=== PATIENT | male | born 1965 | race Caucasian/White ===

== ENCOUNTER 2017-07-09 10:43 | Outpatient (RCR) | payer OTHER, SELFPAY | END 2017-07-09 23:59 | LOC: PT 10:43 | PROVIDERS: Visit Provider Family Medicine | DX: M50.90 Cervical disc disorder, unspecified, unspecified cervical region (principal); M47.22 Other spondylosis with radiculopathy, cervical region; M50.20 Other cervical disc displacement, unspecified cervical region | CPT/HCPCS: 97012; 97110; 97162 ==

== ENCOUNTER 2017-08-17 08:00 | Outpatient (RCR) | payer OTHER, SELFPAY | END 2017-08-17 08:01 | disposition home or self-care (01) | LOC: PT 08:00 | PROVIDERS: Family Provider Family Medicine; PCP Family Medicine; Visit Provider Family Medicine | DX: M50.90 Cervical disc disorder, unspecified, unspecified cervical region (principal); M47.22 Other spondylosis with radiculopathy, cervical region; M50.20 Other cervical disc displacement, unspecified cervical region | CPT/HCPCS: 97010; 97012; 97014; 97035; 97110; G0283 ==

== ENCOUNTER → 2021-01-15 08:57 | Outpatient (CLI) | payer OTHER, SELFPAY ==
--- NOTE | 2021-01-15 09:01 | US_ITS ---
APPROVED REPORT Exam Type: Ankle to Brachial Index Blister Packing Machine Tender: RT Livan(R) Indications Claudication: Rest Pain: Numbness/Tingling Current Smoker diminished pulses. History aortal abdominal bifemoral bypass 2015. Risk Factors History of PAD: Hypertension Hyperlipidemia Current Smoker Pressures/Indices Right Indices Left Indices Brachial 140.00 mmHg Brachial 132.00 mmHg Low Thigh 126.00 mmHg 0.90 Low Thigh 111.00 mmHg 0.79 Calf 141.00 mmHg 1.01 Calf 110.00 mmHg 0.79 Ankle(PT) 146.00 mmHg 1.04 Ankle(PT) 111.00 mmHg 0.79 Ankle(DP) 146.00 mmHg 1.04 Ankle(DP) 94.00 mmHg 0.67 Digit 128.00 mmHg 0.91 Digit 104.00 mmHg 0.74 Findings RT VALERIE=1.04 LT VALERIE=0.8 RT TBI-0.91 LT TBI=0.74 RLE Normal pulses normal waveforms LLE diminished pulses and abnormal waveforms distally VPR and waveforms were obtained single trace as opposed to dual trace due to history of illiac bifemoral bypass. Conclusion RT VALERIE=1.04 LT VALERIE=0.8 RT TBI-0.91 LT TBI=0.74 RLE Normal pulses normal waveforms LLE diminished pulses and abnormal waveforms distally VPR and waveforms were obtained single trace as opposed to dual trace due to history of illiac bifemoral bypass. Mild left arterial disease Electronically signed by : Ashutosh Lino MD 01/15/2021 15:56:54
== END ==
PROVIDERS: PCP Family Medicine; Visit Provider Internal Medicine Cardiovascular Disease
DX: I70.213 Atherosclerosis of native arteries of extremities with intermittent claudication, bilateral legs (principal)
CPT/HCPCS: 93923

== ENCOUNTER → 2022-04-22 10:03 | Outpatient (POV) | payer OTHER, SELFPAY | PROVIDERS: Visit Provider Dermatology | DX: Z00.00 Encounter for general adult medical examination without abnormal findings (principal) ==

== ENCOUNTER 2022-04-24 07:48 | Day surgery (SDC) | payer OTHER, SELFPAY ==
[2022-04-24 08:11] VITALS: BP 136/80; PULSE 61; RESP 20; TEMP 36.5; O2SAT 98; BMI 22.8
--- NOTE | 2022-04-24 08:36 | EXP.ANES.CKL ---
[facility] Medical History Abnormal ankle brachial index (VALERIE) Abnormal electrocardiography Claudication PAD (peripheral artery disease) Tobacco dependence syndrome Surgical History Hx of zwxvp-fnzxk-kzehnya bypass Family History Father Family history of stroke Social History (Updated 04/24/22 @ 08:13 by Blanca Keith RN) Smoking Status: Heavy tobacco smoker tobacco type: cigarettes packs per day: 2 pack-years: 45 alcohol intake: never substance use type: denies use current occupational status: employed Travel in the last 8 weeks: Inside the [place] household members: spouse housing: house marital status: education level: high school caffeine: Yes special radha needs: No agree to transfusion: No do you feel safe at home: Yes victim of physical abuse: No victim of emotional abuse: No victim of sexual abuse: No would you like helpful sources: No [facility] Anesthesia Checklist Patient Identification Patient Identification: Arm Band Structural Data Admitted From: Home Planned Operative Procedure/s: colonoscopy Consent for Planned Operative Procedure(s) Verified: Yes Verified Documents: Surgical Consent and History and Physical NPO Status Verified Time NPO: 00:00 Additional verifications Anesthesia Reactions: No Airway Assessment C-Spine Mobility Assessed: Yes TMJ Mobility Assessed: Yes Dentition: Good Dentition Neurological Assessment Level of Consciousness: Awake and Alert Anesthesia Plan Anesthesia Risk discussed: Yes Anesthesia Plan: Verified ASA Class: III Anesthesia Type: MAC
[2022-04-24 09:02] VITALS: O2SAT 97
--- NOTE | 2022-04-24 09:13 | HMH.SCOPE ---
Procedure: Date: 04/24/22 Patient Date of :: 1965 Procedure Performed:: Screening colonocscopy Indications:: History of polyps Performing Provider:: Trevor Lee MD Referring Provider:: Jesse Madrid MD Sedation:: Propofol Procedure:: After placing the patient in the left lateral decubitus position, the colonoscopy was gently inserted into the rectum and under direct visualization advanced to the cecum which was identified by transillumination in the right lower quadrant, identification of the ileocecal valve, appendiceal orifice, and cecal strap. Color, texture, mucosa, and anatomy of the colon were carefully examined with the scope. Findings:: Anal canal: normal Rectum: normal Sigmoid colon: normal without polyps or inflammatory changes Descending colon: normal without polyps or inflammatory changes Splenic flexure: normal Transverse colon: normal without polyps or inflammatory changes Hepatic flexure: normal Ascending colon: normal without polyps or inflammatory changes Cecum: normal Terminal ileum: not visualized Impression: Normal colonoscopy Recommendations:: Follow up Exam in about FIVE years or so Complications:: None Estimated blood obtained (mL): 0
[2022-04-24 09:18] VITALS: BP 130/89; PULSE 68; RESP 18; TEMP 36.2; O2SAT 98
[2022-04-24 09:28] VITALS: BP 134/80; PULSE 64; RESP 18; O2SAT 99
[2022-04-24 09:38] VITALS: BP 143/79; PULSE 61; RESP 18; O2SAT 99
[2022-04-24 09:48] VITALS: BP 144/77; PULSE 55; RESP 17; O2SAT 99
== END 2022-04-24 09:48 | disposition home or self-care (01) ==
PROVIDERS: PCP Family Medicine; Visit Provider Internal Medicine Gastroenterology
PROC: 0DJD8ZZ Inspection of Lower Intestinal Tract, Via Natural or Artificial Opening Endoscopic (ICD-10-PCS; CPT 45378; principal; 2022-04-24 09:00)
DX: Z12.11 Encounter for screening for malignant neoplasm of colon (principal); Z86.010 Personal history of colon polyps; Z72.0 Tobacco use; Z79.899 Other long term (current) drug therapy
CPT/HCPCS: 45378

== ENCOUNTER → 2023-07-07 07:05 | Outpatient (CLI) | payer OTHER, SELFPAY ==
--- NOTE | 2023-07-07 07:11 | CT_ITS ---
FINAL REPORT TECHNIQUE: Axial images were obtained from the lung apex to the mid abdomen by computed tomography. This study was performed with techniques to keep radiation doses as low as reasonably achievable (ALARA). Individualized dose reduction techniques using automated exposure control or adjustment of mA and/or kV according to the patient's size were employed. CLINICAL HISTORY: H/O TOBACCO USE CURRENT SMOKER 2PPD X41 YEARS FINDINGS: CHEST CT LOW DOSE CTDI vol (mGy): 2.90 DLP (mGy-cm): 107.33 There is no axillary adenopathy. There is no hilar or mediastinal adenopathy. The heart is normal in size. There is no pericardial or pleural effusion. There are multiple small noncalcified nodules bilaterally, for example there is a 3 mm right upper lobe nodule best seen on image 23 of series 604. There is also a 3 mm right lower lobe nodule well seen on image 43 of series 604. Limited images of the upper abdomen are unremarkable. IMPRESSION: Multiple noncalcified nodules bilaterally. Lung RADS category 2. Recommend 12 month follow-up low-dose chest CT. Reviewed, Interpreted and Dictated by Chi Agee MD Transcribed by Mikaela Arreola Authenticated and [facility]
== END ==
PROVIDERS: PCP Family Medicine; Visit Provider Family Medicine
DX: Z87.891 Personal history of nicotine dependence (principal); Z12.2 Encounter for screening for malignant neoplasm of respiratory organs
CPT/HCPCS: 71271

== ENCOUNTER 2023-09-04 20:22 | Inpatient (IN) | payer OTHER, SELFPAY ==
[2023-09-04 20:30] VITALS: BP 132/97; PULSE 85; O2SAT 98
[2023-09-04 20:31] VITALS: BP 161/108; PULSE 70; RESP 16; TEMP 37.2; O2SAT 97; BMI 22.1
--- NOTE | 2023-09-04 20:37 | CT_ITS ---
PROCEDURE INFORMATION: Exam: CTA Chest With Contrast Exam date and time: 09/04/2023 9:15 PM Age: 58 years old Clinical indication: Other: Abdomen pain; Prior surgery; Surgery date: 6+ months; Surgery type: Aortic surgery; Additional info: Abd pain, history of aortic surgery TECHNIQUE: Imaging protocol: Computed tomographic angiography of the chest with contrast. Exam focused on the arteries. 3D rendering (Not supervised by radiologist): MIP and/or 3D reconstructed images were created by the technologist. Radiation optimization: All CT scans at this facility use at least one of these dose optimization techniques: automated exposure control; mA and/or kV adjustment per patient size (includes targeted exams where dose is matched to clinical indication); or iterative reconstruction. Contrast material: ISOVUE 370; Contrast volume: 100 ml; Contrast route: INTRAVENOUS (IV); COMPARISON: CT ANGIO ABDOMEN PELVIS 04/09/2023 21:15 FINDINGS: Pulmonary arteries: No pulmonary emboli. Aorta: No aortic dissection. The aorta demonstrates mild atherosclerotic disease. Lungs: Bilateral apical blebs. Mild to moderate centrilobular emphysema. Pleural spaces: Unremarkable. No pneumothorax. No pleural effusion. Heart: Unremarkable. No cardiomegaly. No pericardial effusion. Coronary arteries: Moderate coronary arterial calcification, indicating the presence of coronary artery disease. Lymph nodes: Unremarkable. No enlarged lymph nodes. Bones/joints: Unremarkable. No acute fracture. Soft tissues: Unremarkable. Other findings: Please see separate report for abdomen/pelvis. IMPRESSION: 1. No aortic dissection. 2. No pulmonary emboli. 3. Moderate coronary arterial calcification, indicating the presence of coronary artery disease. If the patient has associated symptoms, recommend management as per chest pain guidelines. If the patient is asymptomatic, consider reviewing modifiable cardiovascular risk factors and managing as per guidelines for primary prevention. COMMENTS: The presence of pulmonary emphysema on CT is an independent risk factor for lung cancer. In the absence of a history or active diagnosis of lung cancer, it is recommended that this patient with emphysema be evaluated for enrollment in a low dose CT lung cancer screening program.
--- NOTE | 2023-09-04 20:37 | CT_ITS ---
PROCEDURE INFORMATION: Exam: CTA Abdomen and Pelvis With Contrast Exam date and time: 09/04/2023 9:15 PM Age: 58 years old Clinical indication: Abdominal pain; Generalized; Prior surgery; Surgery date: 6+ months; Surgery type: Aortic surgery; Additional info: Abd pain, history of aortic surgery TECHNIQUE: Imaging protocol: Computed tomographic angiography of the abdomen and pelvis with contrast. Exam focused on the arteries. 3D rendering (Not supervised by radiologist): MIP and/or 3D reconstructed images were created by the technologist. Radiation optimization: All CT scans at this facility use at least one of these dose optimization techniques: automated exposure control; mA and/or kV adjustment per patient size (includes targeted exams where dose is matched to clinical indication); or iterative reconstruction. Contrast material: ISOVUE 370; Contrast volume: 100 ml; Contrast route: INTRAVENOUS (IV); COMPARISON: CT ANGIO CHEST 04/09/2023 21:15 FINDINGS: Aorta: No aortic dissection or aneurysm. Chronic aortoiliac occlusion status post aortobifemoral bypass. The bypass grafts are patent. Celiac trunk and mesenteric arteries: No occlusion or significant stenosis. Renal arteries: Mild stenosis of the proximal right renal artery. Right iliac arteries: No occlusion or significant stenosis. Right femoral/popliteal arteries: Postsurgical changes of the right femoral vessels. Left iliac arteries: No occlusion or significant stenosis. Left femoral/popliteal arteries: Occlusion of the left superficial femoral artery at its origin with reconstitution a few cm distal. Postsurgical changes of the left femoral vessels. Liver: No mass. Gallbladder and bile ducts: Unremarkable. No calcified stones. No ductal dilation. Pancreas: Unremarkable. No mass. No ductal dilation. Spleen: Unremarkable. No splenomegaly. Adrenal glands: Unremarkable. No mass. Kidneys and ureters: Tiny nonobstructing right renal calculus. Low and high attenuation renal lesions measuring up to 12 mm in diameter are incompletely characterized, but are likely simple and hyperdense cysts. No followup imaging is warranted. Stomach and bowel: The proximal small bowel is dilated and fluid-filled. The bowel wall of the obstructed segments as minimal postcontrast enhancement. The dilated bowel tapers to normal diameter in the left side of the abdomen where there is significant bowel wall enhancement and thickening example image 171 series 4. Appendix: While there is free fluid around the appendix, the appendix is unremarkable in appearance. Intraperitoneal space: Small amount of free fluid in the abdomen and pelvis. Lymph nodes: Unremarkable. No enlarged lymph nodes. Urinary bladder: Unremarkable. No mass. Reproductive: Unremarkable as visualized. Bones/joints: No acute fracture. Soft tissues: Unremarkable. Other findings: Stigmata of old granulomatous disease. IMPRESSION: 1. Findings most likely represent partial small bowel obstruction. Given the decreased small bowel wall enhancement of the obstructed segment, mesenteric ischemia is a differential possibility. The SMA and celiac trunk are patent. No free air. 2. No aortic dissection or aneurysm. 3. Tiny nonobstructing right renal calculus. 4. THIS REPORT CONTAINS FINDINGS THAT MAY BE CRITICAL TO PATIENT CARE. The findings were verbally communicated via telephone conference with Shavonne Blanco at 10:22 PM EST on 09/04/2023. The findings were acknowledged and understood.
[2023-09-04 20:46] LABS: Basophils % 0.2 % (0.1-2.0); Eosinophils % 0.4 % (0.1-12.0); Hematocrit 58.6 % (42.0-52.0); Lymphocytes # 0.8 K/mm3 (0.7-4.5); Mean Corpuscular HGB Conc 32.3 g/dL (31.8-35.4); Mean Corpuscular Hemoglobin 32.7 pg (27.0-31.2); Mean Corpuscular Volume 101.3 fl (80-94); Mean Platelet Volume 7.7 fl (7.4-10.4); Monocytes # 0.2 K/mm3 (0.1-1.0); Neutrophils # 9.1 K/mm3 (1.8-7.8); Neutrophils % 89.4 % (37.0-80.0); Platelet Count 247 K/mm3 (142-424); Red Blood Count 5.78 M/mm3 (4.60-6.20); Red Cell Distribution Width 13.2 % (11.5-17.5); White Blood Count 10.2 K/mm3 (4.8-10.8)
[2023-09-04 20:47] LABS: Chloride 106 mmol/L (98-107); Sodium 138 mmol/L (136-145)
[2023-09-04 20:48] LABS: Potassium 4.9 mmoL/L (3.5-5.1)
[2023-09-04 20:49] LABS: MANUAL DIFFERENTIAL MANUAL DIFFERENTIAL (MANUAL DIFF)
[2023-09-04 20:50] LABS: Alanine Aminotransferase 24 U/L (12-78); Alkaline Phosphatase 118 U/L (38-126); Aspartate Amino Transferase 28 U/L (17-59); Bilirubin,Total 0.6 mg/dl (0.2-1.3); Blood Urea Nitrogen 19 mg/dl (9-20); Creatinine Clearance Estimated 65 mL/min (50-200); Estimated Glomerular Filt Rate 62 ml/min (>60); GFR (African American) 76 ML/MIN (>60)
[2023-09-04 20:51] LABS: Albumin Level 4.5 g/dl (3.5-5.0); Albumin/Globulin Ratio 1.4 (1.1-1.8); Anion Gap 7.9 mEq/L (5-15); Calcium 9.5 mg/dl (8.4-10.2); Carbon Dioxide 29 mmol/L (22.0-30.0); Globulin 3.2 g/dL (1.3-3.2); Glucose 163 mg/dl (74-100); Total Protein,Serum 7.7 g/dl (6.3-8.2)
[2023-09-04 20:53] LABS: Activated Partial Thrombo Time 26.2 seconds (22.8-30.6); INR 0.97 (0.9-1.1); Prothrombin Time 10.5 seconds (10.1-12.5)
[2023-09-04] MEDS: PHA TO NURSING INSTRUCTION 1 EACH NOTAPPLIC (20:55)
[2023-09-04] MEDS: MORPHINE 4MG/ML SYRINGE 4 MG IV ×2 (21:00→23:00)
[2023-09-04] MEDS: ONDANSETRON 4MG/2ML VIAL 4 MG IV ×2 (21:00→23:00)
[2023-09-04 21:01] VITALS: BP 194/108
--- NOTE | 2023-09-04 21:10 | PC.NURSE ---
Radiology here to get patient and take to CT.
--- NOTE | 2023-09-04 21:12 | PC.NURSE ---
Patient to CT
--- NOTE | 2023-09-04 21:21 | PC.NURSE ---
Patient back from CT.
--- NOTE | 2023-09-04 21:21 | PC.NURSE ---
Patient ambulating to bathroom.
--- NOTE | 2023-09-04 21:23 | PC.NURSE ---
Patient back in room.
[2023-09-04] MEDS: 0.9 % SODIUM CHLORIDE 50 ML VIAL IV (21:26)
[2023-09-04] MEDS: SODIUM CHLORIDE 0.9% 10ML SYR (RAD ONLY) 10 ML IV (21:26)
[2023-09-04] MEDS: IOPAMIDOL-370 (76%);100ML BOTTLE 100 ML IV (21:26)
[2023-09-04 21:39] LABS: Lymphocytes % 9 % (10-50); Macrocytosis 1+; Monocytes % 1 % (2-9); Neutrophils % 90 % (42-76); Platelet Estimate Normal; Total Cells Counted 100
--- NOTE | 2023-09-04 22:11 | PC.NURSE ---
flash called speaking with
--- NOTE | 2023-09-04 22:14 | PC.NURSE ---
call placed to dr carrera
--- NOTE | 2023-09-04 22:18 | PC.NURSE ---
Addendum entered by Madhavi Hawthorne RN 09/04/23 22:29: admit to dr campbell Original Note: house notified of admission to hospitalist;SBO
[2023-09-04 22:30] VITALS: BP 127/91; PULSE 75; O2SAT 97
--- NOTE | 2023-09-04 22:40 | XR_ITS ---
PROCEDURE INFORMATION: Exam: XR Abdomen Exam date and time: 09/04/2023 10:39 PM Age: 58 years old Clinical indication: Device placement; Gi device; Nasogastric tube; Additional info: Ng placement TECHNIQUE: Imaging protocol: Radiologic exam of the abdomen. Views: Frontal supine view of the abdomen. 1 View. COMPARISON: CT ANGIO ABDOMEN PELVIS 04/09/2023 21:15 FINDINGS: Tubes, catheters and devices: Enteric tube tip projects over the stomach. Bilateral inguinal surgical clips. Gastrointestinal tract: Dilated segments of small bowel in the left side of the abdomen consistent with known obstruction. Organs: Contrast in the ureters and urinary bladder. Bones/joints: Unremarkable. IMPRESSION: 1. Enteric tube tip projects over the stomach. 2. Dilated segments of small bowel in the left side of the abdomen consistent with known obstruction.
[2023-09-04 23:00] VITALS: BP 165/103; PULSE 94; O2SAT 94
[2023-09-04] MEDS: LORazepam 2MG/ML VIAL 0.5 MG IV (23:00)
--- NOTE | 2023-09-04 23:25 | PC.NURSE ---
NG advanced from 56 to 59 cm and hooked up to low intermittent suction with clear thick drainage coming out.
--- NOTE | 2023-09-04 23:32 | PC.NURSE ---
report called to Latisha DICKINSON
--- NOTE | 2023-09-04 23:33 | PC.NURSE ---
RECEIVED PHONE REPORT FROM PAL RN/ED NURSE AT [id number]. PATIENT IS A 58 YO MALE WITH PARTIAL SBO. HAS N/G TO INTERM LWS. WILL HAVE A SURGICAL CONSULT. WILL BE NPO.
[2023-09-05] VITALS (7 sets, daily range): BP systolic 141–166; BP diastolic 78–107; PULSE 60–97; RESP 16–22; TEMP 36.7–37.3; O2SAT 95–97; BMI 20.4
--- NOTE | 2023-09-05 00:03 | ED_ITS ---
Discharge Plan Disposition Patient Disposition: Admitted Condition: Serious Chief Complaint: Abdominal Pain Clinical Impressions Clinical Impression: Partial obstruction of small intestine Discharge ED Provider: Shavonne Blanco General Adult HPI General Chief complaint: Abdominal Pain Stated complaint: abd pain, back pain Time Seen by Provider: 09/04/23 20:32 Mode of Arrival: Family Vehicle Source of Information: Patient Limitations: No Limitations Description of Symptoms (Recalled from ER Triage Doc. by RN): 58 yo male presents with abd pain and back pain, cramping in nature, vomiting and chills. states it began last night and hasn't let up since it started. afebrile at presentation. H/O: aortic/femoral bypass and takes daily Xarelto. H/o HTN, high cholesterol, takes lisinopril daily. Hasn't had his meds in the last day. Denies diabetes. Occupation: trailer tank truck driver. History of Present Illness HPI narrative: 58-year-old male with previous medical history of aorta iliac femoral bypass and bowel obstruction in 2019 presented to the emergency department with 24 hours of progressively worsening abdominal pain and nausea and vomiting. Reduced bowel movements today. Related Data Home Medications Medication Instructions Recorded Confirmed lisinopril 10 mg tablet 10 mg PO DAILY htn 01/11/21 04/24/22 aspirin 81 mg tablet,delayed 81 mg PO DAILY thinner 04/21/22 04/24/22 release atorvastatin 40 mg tablet 40 mg PO DAILY Cholesterol 04/21/22 04/24/22 clopidogrel 75 mg tablet (Plavix) 75 mg PO DAILY thinner 04/21/22 04/24/22 Allergies Allergy/AdvReac Type Severity Reaction Status Date / Time silver AdvReac Mild Blister Verified 04/21/22 14:35 [From Tegaderm AG Mesh] [facility] Disclaimer: The information contained in this section may have been updated after the patient was seen, as this information can be updated by other users. Medical History Abnormal ankle brachial index (VALERIE) Abnormal electrocardiography Claudication PAD (peripheral artery disease) Tobacco dependence syndrome Surgical History Hx of cfyhk-tryor-ooxzswk bypass Family History Father Family history of stroke Social History Smoking Status: Unknown if ever smoked alcohol intake: never substance use type: denies use current occupational status: employed Travel in the last 8 weeks: [place] the [place] household members: spouse housing: house marital status: education level: high school caffeine: Yes special radha needs: No agree to transfusion: No do you feel safe at home: Yes victim of physical abuse: No victim of emotional abuse: No victim of sexual abuse: No would you like helpful sources: No ROS Obtained: Yes All systems reviewed & no additional complaints except as do cumented Physical Exam General General appearance: alert and in no apparent distress Head Head exam: atraumatic, normocephalic and normal inspection Eye Eye exam: Present normal appearance, PERRL and EOMI ENT ENT exam: Present normal exam, normal oropharynx, mucous membranes moist, TM's normal bilaterally and normal external ear exam Neck Neck exam: Present normal inspection, full ROM and trachea midline; Absent meningismus or lymphadenopathy Chest Chest inspection: Present normal inspection and symmetric chest wall rise; Absent tenderness Respiratory Respiratory exam: Present normal lung sounds bilaterally; Absent respiratory distress Cardiovascular Cardiovascular exam: Present regular rate and normal rhythm; Absent JVD Abdominal Exam Abdominal exam: Present soft, tenderness, guarding and normal bowel sounds; Absent distention or rigidity Extremities Exam Extremities exam: Present normal inspection, full ROM and normal capillary refill; Absent calf tenderness Back Exam Back exam: Present normal inspection; Absent tenderness Neurological Exam Neurological exam: Present alert and oriented X3 Psychiatric Psychiatric exam: Present normal affect and normal mood Skin Skin exam: Present warm, dry, intact and normal color Lymphatic Lymphatic Findings: no adenopathy Medical Decision Making Neal Inquiry Pt receiving controlled substance: No Neal was queried for this patient: No Vital Signs: 09/04/23 20:31 09/04/23 20:30 09/04/23 21:01 Temperature 98.9 F Temperature Source Oral Pulse Rate 85 Pulse Rate [Right Brachial] 70 Respiratory Rate 16 Blood Pressure 132/97 H 194/108 H Blood Pressure [Right Arm] 161/108 H Blood Pressure Mean 108 136 Blood Pressure Mean [Right Arm] 125 Blood Pressure Source [Right Arm] Automatic Cuff Blood Pressure Position [Right Arm] Sitting 02 Sat by Pulse Oximetry 97 98 Oxygen Delivery Method Room Air 09/04/23 22:30 09/04/23 23:00 Temperature Temperature Source Pulse Rate 75 94 H Pulse Rate [Right Brachial] Respiratory Rate Blood Pressure 127/91 H 165/103 H Blood Pressure [Right Arm] Blood Pressure Mean 105 123 Blood Pressure Mean [Right Arm] Blood Pressure Source [Right Arm] Blood Pressure Position [Right Arm] 02 Sat by Pulse Oximetry 97 94 L Oxygen Delivery Method Lab Data Lab Results 09/04/23 20:31: WBC 10.2, RBC 5.78, Hgb 19.0 H, Hct 58.6 H, MCV 101.3 H, MCH 32.7 H, MCHC 32.3, RDW 13.2, Plt Count 247, MPV 7.7, Neut % (Auto) 89.4 H, Lymph % (Auto) 8.0 L, [place] % (Auto) 2.0, Eos % (Auto) 0.4, Baso % (Auto) 0.2, Neut # (Auto) 9.1 H, Lymph # (Auto) 0.8, [place] # (Auto) 0.2, Eos # (Auto) 0.0, Baso # (Auto) 0.0, Total Counted 100, Neutrophils % (Manual) 90 H, Lymphocytes % (Manual) 9 L, Monocytes % (Manual) 1 L, Platelet Estimate Normal, RBC Morphology Not Reportable, Macrocytosis 1+, PT 10.5, INR 0.97, APTT 26.2, Sodium 138, Potassium 4.9, Chloride 106, Carbon Dioxide 29, Anion Gap 7.9, BUN 19, Cr eatinine 1.20, Estimated Creat Clear 65, Estimated GFR 62, Est GFR ( Amer) 76, Glucose 163 H, Lactate 1.0, Calcium 9.5, Total Bilirubin 0.6, AST 28, ALT 24, Alkaline Phosphatase 118, Total Protein 7.7, Albumin 4.5, Globulin 3.2, Albumin/Globulin Ratio 1.4 09/04/23 20:31 09/04/23 20:31 Orders (Tests/Meds): ED MEDICATIONS Generic Name Dose Route Start Last Admin Trade Name Freq PRN Reason Stop Dose Admin Lorazepam 0.5 mg 09/04/23 22:42 09/04/23 23:00 Lorazepam 2mg/Ml Vial IV 09/04/23 22:43 0.5 mg ONCE ONE Administration Morphine Sulfate 4 mg 09/04/23 22:41 09/04/23 23:00 Morphine 4mg/Ml Syringe IV 09/04/23 22:42 4 mg ONCE ONE Administration Ondansetron HCl 4 mg 09/04/23 22:41 09/04/23 23:00 Ondansetron 4mg/2ml Vial IV 09/04/23 22:42 4 mg ONCE ONE Administration Sodium Chloride 10 ml 09/04/23 22:41 Sodium Chloride 0.9% 10ml Vial IV 10/04/23 22:40 NEEDED PRN to Dilute Lorazepam inj Discontinued Medications Generic Name Dose Route Start Last Admin Trade Name Freq PRN Reason Stop Dose Admin Iopamidol 100 ml 09/04/23 21:25 09/04/23 21:26 Iopamidol-370 (76%);100ml Bottle IV 09/04/23 21:26 100 ml ONCE ONE Administration Miscellaneous 1 each 09/04/23 20:45 09/04/23 20:55 Pha To Nursing Instruction NOTAPPLIC 09/04/23 20:46 1 each ONCE ONE Administration Morphine Sulfate 4 mg 09/04/23 20:37 09/04/23 21:00 Morphine 4mg/Ml Syringe IV 09/04/23 20:38 4 mg ONCE ONE Administration Ondansetron HCl 10.10336 mg 09/04/23 20:37 09/04/23 20:55 Ondansetron 4mg Odt SL 09/04/23 20:38 Not Given ONCE ONE Ondansetron HCl 4 mg 09/04/23 20:52 09/04/23 21:00 Ondansetron 4mg/2ml Vial IV 09/04/23 20:53 4 mg ONCE ONE Administration Sodium Chloride 10 ml 09/04/23 21:25 09/04/23 21:26 Sodium Chloride 0.9% 10ml Syr (Rad Only) IV 09/04/23 21:26 10 ml ONCE ONE Administration Sodium Chloride 50 ml 09/04/23 21:25 09/04/23 21:26 0.9 % Sodium Chloride 50 Ml Vial IV 09/04/23 21:26 50 ml ONCE ONE Administration ORDERS Category Date Time Status CT angio abdomen pelvis Stat Cat Scan 09/04/23 20:[address] angio chest - dissection Stat Cat Scan 09/04/23 20:37 Completed CBC [Complete Blood Count Auto Diff] Stat Lab 09/04/23 20:31 Completed CMP [Comprehensive Metabolic Panel] Stat Lab 09/04/23 20:31 Completed Lactic Acid Stat Lab 09/04/23 20:31 Completed PT/PTT Stat Lab 09/04/23 20:31 Completed Urinalysis and Microscopic Stat Lab 09/04/23 20:39 Ordered Medical Decision Narrative: Considered multiple causes of patient's presentation including bowel obstruction, mesenteric ischemia, pancreatitis, hepatitis, cholecystitis, appendicitis, among others. For this reason obtained laboratory evaluation that I independently reviewed and interpreted and showed hemoconcentration but otherwise no significant abnormalities to explain his symptoms. Lactate within normal limits. CT abdomen pelvis independently reviewed and interpreted showed partial small bowel obstruction. Consulted surgery who agreed that patient should be admitted to medicine service and they will be consulted in the morning. Consulted medicine who agreed to admit the patient. Nursing placed NG tube. Patient remained stable until time of admission. Critical Care Critical Care Time Critical Care Time: No
--- NOTE | 2023-09-05 00:33 | PC.NURSE ---
paresh returned call
--- NOTE | 2023-09-05 00:44 | PC.NURSE ---
PATIENT ARRIVED TO THE FLOOR PER STRETCHER AT 0029. SPOUSE AT SIDE.
[2023-09-05] MEDS: 0.9 % SODIUM CHLORIDE 1000ML 1,000 ML 100 ML IV ×3 (00:56→20:06)
[2023-09-05 01:03] LABS: Appearance,Urine CLEAR (Clear); Bilirubin,Urine Negative (Negative); Blood, Urine 3+ (Negative); Color,Urine YELLOW (Yellow); Glucose,Urine (UA) Negative (Negative); Ketones,Urine TRACE (Negative); Leukocyte Esterase,Urine Negative (Negative); Microscopic, Urine URINE MICROSCOPIC (MICROSCOPIC); Nitrate,Urine Negative (Negative); PH,Urine 5.5 (5.0-8.5); Protein,Urine Negative (Negative); Urobilinogen,Urine 0.2 EU/dl (0.2)
[2023-09-05 01:13] LABS: Squamous Epithelial Cell,Urine Occasional #/hpf (0-5)
[2023-09-05] MEDS: MORPHINE 2MG/ML SYRINGE 2 MG IV ×2 (05:31→07:48)
[2023-09-05] MEDS: SODIUM CHLORIDE 0.9% 10ML FLUSH SYRINGE 10 ML IV (05:32)
--- NOTE | 2023-09-05 05:35 | PC.NURSE ---
2140 DR WOLFE CONTACTED RE PATIENTS C/O ABD PAIN. ORDER RECEIVED FOR MORPHINE 2 MG IVP Q 2 HRS PRN FOR PAIN 7-10.
--- NOTE | 2023-09-05 08:02 | EXP.SURG.CON ---
History of Present Illness *Admission Date: 09/04/23 *Reason for visit:: Small bowel obstruction *History of present illness: Patient is a 58-year-old with history of tobacco dependence, chronic arterial occlusive disease prior history of aorta iliac femoral bypass via midline laparotomy. He is on Xarelto. He presented to the emergency department in the late evening of 09/04/2023 with abdominal and back pain described as cramping with some vomiting and chills. He does have a prior history of similar symptoms in the past for which he did not seek medical attention and they resolved without intervention. He had diminished bowel movements. Last bowel movement was on 09/03/2023. Evaluation in the emergency department included CTA of the abdomen and pelvis which by radiology report reveals findings most likely represent partial small bowel obstruction. Given the decrease small bowel wall enhancement of the obstructed segment, mesenteric ischemia is a differential possibility. Mesenteric arteries are patent. Patient did undergo colonoscopy with Dr. Lee 16 months ago which was completely normal. Patient did have a nasogastric tube placed. He does feel somewhat better. [facility] Disclaimer: The information contained in this section may have been updated after the patient was seen, as this information can be updated by other users. Medical History Abnormal ankle brachial index (VALERIE) Abnormal electrocardiography Claudication PAD (peripheral artery disease) Tobacco dependence syndrome Surgical History Hx of tszkn-hpbby-czkhihl bypass Family History Father Family history of stroke Social History (Updated 09/05/23 @ 01:06 by Shannan Madrid RN) Smoking Status: Current every day smoker tobacco type: cigarettes packs per day: 2 alcohol intake: never substance use type: denies use current occupational status: employed Travel in the last 8 weeks: Inside the [place] household members: spouse housing: house marital status: education level: high school caffeine: Yes special radha needs: No agree to transfusion: No do you feel safe at home: Yes victim of physical abuse: No victim of emotional abuse: No victim of sexual abuse: No would you like helpful sources: No Meds Home Medications and Allergies Home Medications Medication Instructions Recorded Confirmed Type lisinopril 10 mg tablet 10 mg PO DAILY htn 01/11/21 09/05/23 History aspirin 81 mg tablet,delayed 81 mg PO DAILY thinner 04/21/22 09/05/23 History release atorvastatin 40 mg tablet 40 mg PO DAILY Cholesterol 04/21/22 09/05/23 History rivaroxaban 2.5 mg tablet (Xarelto) 2.5 mg PO DAILY 09/05/23 09/05/23 History New Prescriptions to Start Prescriptions: Allergies Allergy/AdvReac Type Severity Reaction Status Date / Time silver AdvReac Mild Blister Verified 04/21/22 14:35 [From Tegaderm AG Mesh] Exam (Inpt) Vital signs and Labs for Last 24 Hours: Temp Pulse Resp BP Pulse Ox O2 Del Method 98.0 F 89 18 147/85 H 95 Room Air 09/05/23 04:00 09/05/23 04:00 09/05/23 04:00 09/05/23 04:00 09/05/23 04:00 09/05/23 06:23 Laboratory Results - last 24 hr 09/04/23 20:31: WBC 10.2, RBC 5.78, Hgb 19.0 H, Hct 58.6 H, MCV 101.3 H, MCH 32.7 H, MCHC 32.3, RDW 13.2, Plt Count 247, MPV 7.7, Neut % (Auto) 89.4 H, Lymph % (Auto) 8.0 L, [place] % (Auto) 2.0, Eos % (Auto) 0.4, Baso % (Auto) 0.2, Neut # (Auto) 9.1 H, Lymph # (Auto) 0.8, [place] # (Auto) 0.2, Eos # (Auto) 0.0, Baso # (Auto) 0.0, Total Counted 100, Neutrophils % (Manual) 90 H, Lymphocytes % (Manual) 9 L, Monocytes % (Manual) 1 L, Platelet Estimate Normal, RBC Morphology Not Reportable, Macrocytosis 1+, PT 10.5, INR 0.97, APTT 26.2, Sodium 138, Potassium 4.9, Chloride 106, Carbon Dioxide 29, Anion Gap 7.9, BUN 19, Creatinine 1.20, Estimated Creat Clear 65, Estimated GFR 62, Est GFR ( Amer) 76, Glucose 163 H, Lactate 1.0, Calcium 9.5, Total Bilirubin 0.6, AST 28, ALT 24, Alkaline Phosphatase 118, Total Protein 7.7, Albumin 4.5, Globulin 3.2, Albumin/Globulin Ratio 1.4 09/05/23 00:41: Urine Color Yellow, Urine Appearance Clear, Urine pH 5.5, Ur Specific [place] 1.010, Urine Protein Negative, Urine Glucose (UA) Negative, Urine Ketones Trace, Urine Blood 3+, Urine Nitrate Negative, Urine Bilirubin Negative, Urine Urobilinogen 0.2, Ur Leukocyte Esterase Negative, Urine RBC 5-10, Urine WBC None, Ur Squamous Epith Cells Occasional, Urine Bacteria None I & O for Labs for Last 24 Hours: Intake & Output 09/02/23 09/03/23 09/04/23 09/05/23 11:59 11:59 11:59 11:59 Intake Total 688 / 688 Output Total 751 / 751 Balance -63 / -63 Weight 138 lb 1 oz Constitutional: no acute distress Head: Present normocephalic GI: Present soft; Absent tenderness Results Labs 09/05/23 06:47 09/05/23 06:47 Labs: Laboratory Results - last 24 hr 09/04/23 20:31: WBC 10.2, RBC 5.78, Hgb 19.0 H, Hct 58.6 H, MCV 101.3 H, MCH 32.7 H, MCHC 32.3, RDW 13.2, Plt Count 247, MPV 7.7, Neut % (Auto) 89.4 H, Lymph % (Auto) 8.0 L, [place] % (Auto) 2.0, Eos % (Auto) 0.4, Baso % (Auto) 0.2, Neut # (Auto) 9.1 H, Lymph # (Auto) 0.8, [place] # (Auto) 0.2, Eos # (Auto) 0.0, Baso # (Auto) 0.0, Total Counted 100, Neutrophils % (Manual) 90 H, Lymphocytes % (Manual) 9 L, Monocytes % (Manual) 1 L, Platelet Estimate Normal, RBC Morphology Not Reportable, Macrocytosis 1+, PT 10.5, INR 0.97, APTT 26.2, Sodium 138, Potassium 4.9, Chloride 106, Carbon Dioxide 29, Anion Gap 7.9, BUN 19, Creatinine 1.20, Estimated Creat Clear 65, Estimated GFR 62, Est GFR ( Amer) 76, Glucose 163 H, Lactate 1.0, Calcium 9.5, Total Bilirubin 0.6, AST 28, ALT 24, Alkaline Phosphatase 118, Total Protein 7.7, Albumin 4.5, Globulin 3.2, Albumin/Globulin Ratio 1.4 09/05/23 00:41: Urine Color Yellow, Urine Appearance Clear, Urine pH 5.5, Ur Specific [place] 1.010, Urine Protein Negative, Urine Glucose (UA) Negative, Urine Ketones Trace, Urine Blood 3+, Urine Nitrate Negative, Urine Bilirubin Negative, Urine Urobilinogen 0.2, Ur Leukocyte Esterase Negative, Urine RBC 5-10, Urine WBC None, Ur Squamous Epith Cells Occasional, Urine Bacteria None Assessment and Plan *Assessment and plan (1) Partial obstruction of small intestine: Status: Acute Category: Medical Code(s): K56.600 - Partial intestinal obstruction, unspecified as to cause Plan I reviewed his imaging. He has some moderately dilated small bowel loops with gas and stool in the colon. Clinically patient has no indications for immediate surgery. Plan will be for attempt at nonoperative management with nasogastric decompression and bowel rest. I will order a follow-up acute abdominal series. Recommend nasogastric tube to continuous low wall suction.
[2023-09-05 08:03] LABS: Chloride 110 mmol/L (98-107); Potassium 4.2 mmoL/L (3.5-5.1); Sodium 139 mmol/L (136-145)
[2023-09-05 08:06] LABS: Alanine Aminotransferase 15 U/L (12-78); Albumin Level 3.9 g/dl (3.5-5.0); Albumin/Globulin Ratio 1.4 (1.1-1.8); Alkaline Phosphatase 90 U/L (38-126); Anion Gap 7.2 mEq/L (5-15); Aspartate Amino Transferase 20 U/L (17-59); Bilirubin,Total 0.5 mg/dl (0.2-1.3); Blood Urea Nitrogen 19 mg/dl (9-20); Carbon Dioxide 26 mmol/L (22.0-30.0); Creatinine Clearance Estimated 66 mL/min (50-200); Estimated Glomerular Filt Rate 69 ml/min (>60); GFR (African American) 83 ML/MIN (>60); Globulin 2.7 g/dL (1.3-3.2); Total Protein,Serum 6.6 g/dl (6.3-8.2)
[2023-09-05 08:07] LABS: Calcium 8.8 mg/dl (8.4-10.2); Glucose 97 mg/dl (74-100)
[2023-09-05 08:09] LABS: Basophils % 0.2 % (0.1-2.0); Eosinophils % 0.1 % (0.1-12.0); Hematocrit 51.5 % (42.0-52.0); Hemoglobin 17.2 g/dL (14.1-18.0); Lymphocytes # 1.7 K/mm3 (0.7-4.5); Lymphocytes % 15.6 % (10-50); Mean Corpuscular HGB Conc 33.4 g/dL (31.8-35.4); Mean Corpuscular Hemoglobin 33.5 pg (27.0-31.2); Mean Corpuscular Volume 100.5 fl (80-94); Mean Platelet Volume 7.9 fl (7.4-10.4); Monocytes # 0.7 K/mm3 (0.1-1.0); Monocytes % 6.5 % (1.7-9.3); Neutrophils # 8.7 K/mm3 (1.8-7.8); Neutrophils % 77.6 % (37.0-80.0); Platelet Count 227 K/mm3 (142-424); Red Blood Count 5.12 M/mm3 (4.60-6.20); Red Cell Distribution Width 13.2 % (11.5-17.5); White Blood Count 11.1 K/mm3 (4.8-10.8)
--- NOTE | 2023-09-05 08:33 | XR_ITS ---
PROCEDURE INFORMATION: Exam: XR Complete Acute Abdomen Series Including Chest Exam date and time: 09/05/2023 10:19 AM Age: 58 years old Clinical indication: Condition or disease; Other: Checking for possible bowel obstruction TECHNIQUE: Imaging protocol: Radiologic exam. Complete acute abdomen series, including 2 or more views of the abdomen and a single view chest. COMPARISON: CR XR KUB 09/04/2023 10:39 PM FINDINGS: Tubes, catheters and devices: There is an NG tube coursing into the stomach. There is mild gaseous distension throughout the small and large bowel more typical of generalized ileus. No free air detected. Lungs: Visualized lung bases are clear. Pleural spaces: Normal. No pleural effusions. No pneumothorax. Heart/Mediastinum: Normal. No cardiomegaly. Gastrointestinal tract: See Tubes, catheters and devices finding. Intraperitoneal space: See Tubes, catheters and devices finding. Organs: There is contrast opacifying the urinary bladder. Bones/joints: Normal. No acute fracture. Soft tissues: Normal. IMPRESSION: Mild gaseous distension throughout the GI tract suggestive of generalized ileus.
--- NOTE | 2023-09-05 10:04 | P.HP_ITS ---
History of Present Illness *Admission Date: 09/04/23 *History of present illness: Patient is a 58-year-old with a 2ppd history of tobacco dependence, chronic arterial occlusive disease prior history of aorta iliac femoral bypass in 2016. He is on Xarelto. He presented to the emergency department last evening of 09/04/2023 with abdominal and back pain described as cramping with some vomiting and chills. His symptoms stated yesterday morning. He has had similar episodes in the past for which he did not seek medical attention and they resolved without intervention. His last bowel movement was on 09/03/2023. Evaluation in the emergency department included CTA of the abdomen and pelvis which revealed findings most likely represent partial small bowel obstruction. Given the decrease small bowel wall enhancement of the obstructed segment, mesenteric ischemia is a differential possibility. Mesenteric arteries are patent. Patient did undergo colonoscopy with Dr. Lee 16 months ago which was completely normal. In the ER patient did have a nasogastric tube placed with improvement in symptoms. He does feel somewhat better this morning, he states. The patient has been seen in consultation by Dr. Regan this morning. See his evaluation. [facility] Disclaimer: The information contained in this section may have been updated after the patient was seen, as this information can be updated by other users. Medical History Abnormal ankle brachial index (VALERIE) Abnormal electrocardiography Claudication PAD (peripheral artery disease) Tobacco dependence syndrome Surgical History Hx of vvikl-ycayn-ulrymzi bypass Family History Father Family history of stroke Social History (Updated 09/05/23 @ 01:06 by Shannna Madrid RN) Smoking Status: Current every day smoker tobacco type: cigarettes packs per day: 2 alcohol intake: never substance use type: denies use current occupational status: employed Travel in the last 8 weeks: [place] the [place] household members: spouse housing: house marital status: education level: high school caffeine: Yes special radha needs: No agree to transfusion: No do you feel safe at home: Yes victim of physical abuse: No victim of emotional abuse: No victim of sexual abuse: No would you like helpful sources: No Meds Home Medications and Allergies Home Medications Medication Instructions Recorded Confirmed Type lisinopril 10 mg tablet 10 mg PO DAILY htn 01/11/21 09/05/23 History aspirin 81 mg tablet,delayed 81 mg PO DAILY thinner 04/21/22 09/05/23 History release atorvastatin 40 mg tablet 40 mg PO DAILY Cholesterol 04/21/22 09/05/23 History rivaroxaban 2.5 mg tablet (Xarelto) 2.5 mg PO DAILY 09/05/23 09/05/23 History New Prescriptions to Start Prescriptions: Allergies Allergy/AdvReac Type Severity Reaction Status Date / Time silver AdvReac Mild Blister Verified 04/21/22 14:35 [From Tegaderm AG Mesh] Exam Data for Last 24 hours Vital signs and Labs for Last 24 Hours: Temp Pulse Resp BP Pulse Ox O2 Del Method 99.2 F 76 16 162/87 H 97 Room Air 09/05/23 08:00 09/05/23 08:00 09/05/23 08:00 09/05/23 08:00 09/05/23 08:00 09/05/23 09:00 Laboratory Results - last 24 hr 09/04/23 20:31: WBC 10.2, RBC 5.78, Hgb 19.0 H, Hct 58.6 H, MCV 101.3 H, MCH 32.7 H, MCHC 32.3, RDW 13.2, Plt Count 247, MPV 7.7, Neut % (Auto) 89.4 H, Lymph % (Auto) 8.0 L, [place] % (Auto) 2.0, Eos % (Auto) 0.4, Baso % (Auto) 0.2, Neut # (Auto) 9.1 H, Lymph # (Auto) 0.8, [place] # (Auto) 0.2, Eos # (Auto) 0.0, Baso # (Auto) 0.0, Total Counted 100, Neutrophils % (Manual) 90 H, Lymphocytes % (Manual) 9 L, Monocytes % (Manual) 1 L, Platelet Estimate Normal, RBC Morphology Not Reportable, Macrocytosis 1+, PT 10.5, INR 0.97, APTT 26.2, Sodium 138, Potassium 4.9, Chloride 106, Carbon Dioxide 29, Anion Gap 7.9, BUN 19, Creatinine 1.20, Estimated Creat Clear 65, Estimated GFR 62, Est GFR ( Amer) 76, Glucose 163 H, Lactate 1.0, Calcium 9.5, Total Bilirubin 0.6, AST 28, ALT 24, Alkaline Phosphatase 118, Total Protein 7.7, Albumin 4.5, Globulin 3.2, Albumin/Globulin Ratio 1.4 09/05/23 00:41: Urine Color Yellow, Urine Appearance Clear, Urine pH 5.5, Ur Specific [place] 1.010, Urine Protein Negative, Urine Glucose (UA) Negative, Urine Ketones Trace, Urine Blood 3+, Urine Nitrate Negative, Urine Bilirubin Negative, Urine Urobilinogen 0.2, Ur Leukocyte Esterase Negative, Urine RBC 5- 10, Urine WBC None, Ur Squamous Epith Cells Occasional, Urine Bacteria None 09/05/23 06:47: WBC 11.1 H, RBC 5.12, Hgb 17.2, Hct 51.5, MCV 100.5 H, MCH 33.5 H, MCHC 33.4, RDW 13.2, Plt Count 227, MPV 7.9, Neut % (Auto) 77.6, Lymph % (Auto) 15.6, [place] % (Auto) 6.5, Eos % (Auto) 0.1, Baso % (Auto) 0.2, Neut # (Auto) 8.7 H, Lymph # (Auto) 1.7, [place] # (Auto) 0.7, Eos # (Auto) 0.0, Baso # (Auto) 0.0, Sodium 139, Potassium 4.2, Chloride 110 H, Carbon Dioxide 26, Anion Gap 7.2, BUN 19, Creatinine 1.10, Estimated Creat Clear 66, Estimated GFR 69, Est GFR ( Amer) 83, Glucose 97 D, Calcium 8.8, Total Bilirubin 0.5, AST 20 D, ALT 15 D, Alkaline Phosphatase 90, Total Protein 6.6, Albumin 3.9 D, Globulin 2.7, Albumin/Globulin Ratio 1.4 I & O for Last 24 hours: Intake & Output 09/02/23 09/03/23 09/04/23 09/05/23 11:59 11:59 11:59 11:59 Intake Total 688 / 688 Output Total 751 / 751 Balance -63 / -63 Weight 138 lb 1 oz Constitutional Constitutional: no acute distress *Routine HEENT Exam Head: Present normocephalic Eye: Present PERRL ENT: Present mucous membranes moist *Routine Neck Exam Neck: Present full ROM; Absent carotid bruit Routine Chest/Breast/Axilla Exam Chest wall: Absent tenderness *Routine Respiratory Exam Respiratory: Present decreased breath sounds; Absent respiratory distress, rhonchi, stridor or wheezes *Routine Cardiovascular Exam Cardiovascular: Present RRR *Routine Abdominal Exam Abdominal: Present soft and surgical scars; Absent tenderness, distended or guarding *Routine Rectal Exam Rectal:: deferred *Routine Genitalia Exam Genitalia:: deferred *Routine Extremities Exam Extremities: Absent cyanosis, clubbing or edema Routine Back/Spine/Pelvis Exam Back/Spine: Absent CVA tenderness *Routine Skin Exam Skin: Present intact; Absent scars (tattoos of left forearm) *Routine Neurological Exam Neurological: Present alert, oriented X3 and normal speech; Absent sensory deficit, motor deficit or altered mental status Routine Psychiatric Exam Psychiatric: Present normal affect, normal thought process and cooperative Assessment and Plan *Assessment and plan (1) Partial obstruction of small intestine: Status: Acute Category: Medical Code(s): K56.600 - Partial intestinal obstruction, unspecified as to cause (2) Tobacco dependence syndrome: Status: Acute Category: Medical Code(s): F17.200 - Nicotine dependence, unspecified, uncomplicated (3) Hx of fqnik-looml-uwovjoc bypass: Status: Chronic Category: Surgical Code(s): Z95.828 - Presence of other vascular implants and grafts (4) PAD (peripheral artery disease): Status: Chronic Category: Medical Code(s): I73.9 - Peripheral vascular disease, unspecified Plan NG in place. See orders.
[2023-09-05 11:13] LABS: Thyroid Stimulating Hormone 0.53 uIU/mL (0.465-4.68)
[2023-09-05 11:32] LABS: Vitamin B12 366 pg/mL (239-931)
--- NOTE | 2023-09-05 13:24 | HMH.PHAINT1 ---
Pharmacy Intervention Comments: MEDICATION RECONCILIATION COMPLETED ON PATIENT USING EXTERNAL FILL HISTORY FROM PHARMACY. -MOODY ZHAO, NÉSTORD
--- NOTE | 2023-09-05 17:53 | PC.NURSE ---
Pain noted at beginning of shift, morphine given and pain relieved. Bowel sounds hypoactive. Abdomen not distended but tender on palpation. No bowel movements this shift. NG tube hooked up to lws at 59 cm. 700 output from ng tube. Drainage noted to be dark red in color this am, Dr. Regan notified, no new orders. VS stable and patient remained on room air
[2023-09-06 04:00] VITALS: BP 137/74; PULSE 74; RESP 20; TEMP 36.8; O2SAT 95; BMI 20.9
[2023-09-06] MEDS: 0.9 % SODIUM CHLORIDE 1000ML 1,000 ML 100 ML IV (06:27)
[2023-09-06 07:45] LABS: Basophils % 0.3 % (0.1-2.0); Eosinophils # 0.1 K/mm3 (0.0-0.4); Eosinophils % 0.7 % (0.1-12.0); Hematocrit 47.6 % (42.0-52.0); Lymphocytes # 1.6 K/mm3 (0.7-4.5); Lymphocytes % 17.7 % (10-50); Mean Corpuscular HGB Conc 33.6 g/dL (31.8-35.4); Mean Corpuscular Hemoglobin 33.5 pg (27.0-31.2); Mean Corpuscular Volume 99.7 fl (80-94); Mean Platelet Volume 8.2 fl (7.4-10.4); Monocytes # 0.5 K/mm3 (0.1-1.0); Monocytes % 5.5 % (1.7-9.3); Neutrophils # 6.9 K/mm3 (1.8-7.8); Neutrophils % 75.8 % (37.0-80.0); Platelet Count 213 K/mm3 (142-424); Red Blood Count 4.78 M/mm3 (4.60-6.20); Red Cell Distribution Width 13.3 % (11.5-17.5); White Blood Count 9.1 K/mm3 (4.8-10.8)
[2023-09-06 07:47] LABS: Chloride 110 mmol/L (98-107); Potassium 3.7 mmoL/L (3.5-5.1); Sodium 142 mmol/L (136-145)
--- NOTE | 2023-09-06 07:48 | XR_ITS ---
PROCEDURE INFORMATION: Exam: XR Complete Acute Abdomen Series Including Chest Exam date and time: 09/06/2023 8:28 AM Age: 58 years old Clinical indication: Condition or disease; Other: Possible bowel obstruction TECHNIQUE: Imaging protocol: Radiologic exam. Complete acute abdomen series, including 2 or more views of the abdomen and a single view chest. COMPARISON: CR XR ACUTE ABDOMEN SERIES 09/05/2023 10:19 AM FINDINGS: Tubes, catheters and devices: There is a feeding tube terminating within the expected location of the stomach. Lungs: The lungs are clear. No consolidation. Pleural spaces: Normal. No pleural effusions. No pneumothorax. Heart/Mediastinum: Normal. No cardiomegaly. Gastrointestinal tract: Moderate volume stool within the colon. No findings to suggest bowel obstruction. Intraperitoneal space: Normal. No free air. Bones/joints: Normal. No acute fracture. Soft tissues: Postsurgical clips in bilateral inguinal regions. IMPRESSION: Moderate volume stool within the colon. No findings to suggest bowel obstruction.
[2023-09-06 07:49] LABS: Alanine Aminotransferase 17 U/L (12-78); Aspartate Amino Transferase 27 U/L (17-59); Blood Urea Nitrogen 22 mg/dl (9-20); Creatinine Clearance Estimated 67 mL/min (50-200); Estimated Glomerular Filt Rate 69 ml/min (>60); GFR (African American) 83 ML/MIN (>60)
[2023-09-06 07:50] LABS: Albumin Level 3.6 g/dl (3.5-5.0); Albumin/Globulin Ratio 1.4 (1.1-1.8); Alkaline Phosphatase 100 U/L (38-126); Anion Gap 6.7 mEq/L (5-15); Bilirubin,Total 0.7 mg/dl (0.2-1.3); Calcium 8.7 mg/dl (8.4-10.2); Carbon Dioxide 29 mmol/L (22.0-30.0); Chol/HDL Ratio 4.4 (1-3.5); Cholesterol 114 mg/dl (140-200); Globulin 2.6 g/dL (1.3-3.2); Glucose 81 mg/dl (74-100); HDL Cholesterol 26 mg/dl (40-60); Total Protein,Serum 6.2 g/dl (6.3-8.2); Triglycerides 94 mg/dl (30-150); VLDL Cholesterol 19 mg/dL (0-40)
[2023-09-06 08:00] VITALS: BP 143/85; PULSE 62; RESP 20; TEMP 36.8; O2SAT 96
[2023-09-06 08:01] LABS: Direct LDL Cholesterol 66.26 mg/dL (100-129)
--- NOTE | 2023-09-06 08:26 | P.PN_ITS ---
Subjective Narrative: Patient without significant complaints. He does state that he is passing some gas. Acute abdominal series yesterday showed small and large bowel gas consistent with ileus . Exam Data for Last 24 hours Vital signs and Labs for Last 24 Hours: Temp Pulse Resp BP Pulse Ox O2 Del Method 98.3 F 62 20 143/85 H 96 Room Air 09/06/23 08:00 09/06/23 08:00 09/06/23 08:00 09/06/23 08:00 09/06/23 08:00 09/06/23 08:00 Laboratory Results - last 24 hr 09/05/23 06:47: WBC 11.1 H, RBC 5.12, Hgb 17.2, Hct 51.5, MCV 100.5 H, MCH 33.5 H, MCHC 33.4, RDW 13.2, Plt Count 227, MPV 7.9, Neut % (Auto) 77.6, Lymph % (Auto) 15.6, [place] % (Auto) 6.5, Eos % (Auto) 0.1, Baso % (Auto) 0.2, Neut # (Auto) 8.7 H, Lymph # (Auto) 1.7, [place] # (Auto) 0.7, Eos # (Auto) 0.0, Baso # (Auto) 0.0, Vitamin B12 366, TSH 0.53 09/06/23 07:05: WBC 9.1, RBC 4.78, Hgb 16.0, Hct 47.6, MCV 99.7 H, MCH 33.5 H, MCHC 33.6, RDW 13.3, Plt Count 213, MPV 8.2, Neut % (Auto) 75.8, Lymph % (Auto) 17.7, [place] % (Auto) 5.5, Eos % (Auto) 0.7, Baso % (Auto) 0.3, Neut # (Auto) 6.9, Lymph # (Auto) 1.6, [place] # (Auto) 0.5, Eos # (Auto) 0.1, Baso # (Auto) 0.0, Sodium 142, Potassium 3.7, Chloride 110 H, Carbon Dioxide 29, Anion Gap 6.7, BUN 22 H, Creatinine 1.10, Estimated Creat Clear 67, Estimated GFR 69, Est GFR ( Amer) 83, Glucose 81, Calcium 8.7, Total Bilirubin 0.7, AST 27 D, ALT 17, Alkaline Phosphatase 100, Total Protein 6.2 L, Albumin 3.6, Globulin 2.6, Albumin/Globulin Ratio 1.4, Triglycerides 94, Cholesterol 114 L, LDL Cholesterol Direct 66.26 L, VLDL Cholesterol 19, HDL Cholesterol 26 L, Cholesterol/HDL Ratio 4.4 H I & O for Last 24 hours: Intake & Output 09/03/23 09/04/23 09/05/23 09/06/23 11:59 11:59 11:59 11:59 Intake Total 688 / 688 2217 / 2217 Output Total 751 / 751 1730 / 1730 Balance -63 / -63 487 / 487 Weight 138 lb 1 oz 141 lb 2 oz *Routine Abdominal Exam Abdominal: Present soft; Absent tenderness Progress Note: A&P Assessment and plan (1) Partial obstruction of small intestine: Status: Acute Assessment and plan: Follow-up imaging today. (2) Tobacco dependence syndrome: Status: Acute (3) Hx of nnfdc-yoxey-vgevmoa bypass: Status: Chronic (4) PAD (peripheral artery disease): Status: Chronic
[2023-09-06] MEDS: POLYETHYLENE GLYCOL 3350 17 GM PACKET PO (08:49)
[2023-09-06] MEDS: BISACODYL 10MG SUPP 10 MG RC (08:49)
--- NOTE | 2023-09-06 09:41 | PC.NURSE ---
ng tube removed at 0848
--- NOTE | 2023-09-06 11:27 | EXP.ACUTE.PN ---
Subjective *Date: 09/06/23 *Time: 11:27 Interval history: He feels better. NG tube removed this AM per Dr. Regan. Dr. Regan noted large amount of stool on GI study and ordered Dulcolax suppository. WBC WNL. H&H normal, lytes normal. Bowel sounds present and abdomen soft. Medical Exam Vital signs and Labs for Last 24 Hours: Vital Signs Temp Pulse Resp BP Pulse Ox O2 Del Method 09/06/23 07:50 Room Air 09/06/23 08:50 Room Air 09/06/23 08:00 98.3 F 62 20 143/85 H 96 Room Air 09/06/23 07:00 Room Air 09/06/23 05:00 Room Air 09/06/23 04:00 98.3 F 74 20 137/74 95 Room Air 09/06/23 03:00 Room Air 09/06/23 01:00 Room Air 09/05/23 23:00 Room Air 09/05/23 21:00 Room Air 09/05/23 20:00 98.1 F 60 18 142/78 H 95 Room Air 09/05/23 20:00 Room Air 09/05/23 18:56 Room Air 09/05/23 17:00 Room Air 09/05/23 16:00 98.1 F 70 18 141/90 H 95 Room Air 09/05/23 14:47 Room Air 09/05/23 13:00 Room Air Intake and Output 09/05/23 09/06/23 09/06/23 19:59 03:59 11:59 Intake Total 998 / 2217 1219 / 2217 Output Total 700 / 1730 880 / 1730 150 / 1730 Balance 298 / 487 -880 / 487 1069 / 487 Intake: Intake, Oral Amount 0 / 0 Intake, Total IV Amount 998 / 2217 1219 / 2217 0.9 % Sodium Chloride 1000ML 1, 998 / 2217 1219 / 2217 000 ml @ 100 mls/hr IV .Q10H [facility] Rx#:[id number] Output: Output, Urine Amount 0 / 630 480 / 630 150 / 630 Output, Gastric Drainage Amount 700 / 1100 400 / 1100 Nare 700 / 1100 400 / 1100 Other: Weight 141 lb 2 oz Patient Weight 09/06/23 11:59 Weight 141 lb 2 oz Laboratory Results - last 24 hr 09/05/23 06:47: Vitamin B12 366 09/06/23 07:05: WBC 9.1, RBC 4.78, Hgb 16.0, Hct 47.6, MCV 99.7 H, MCH 33.5 H, MCHC 33.6, RDW 13.3, Plt Count 213, MPV 8.2, Neut % (Auto) 75.8, Lymph % (Auto) 17.7, [place] % (Auto) 5.5, Eos % (Auto) 0.7, Baso % (Auto) 0.3, Neut # (Auto) 6.9, Lymph # (Auto) 1.6, [place] # (Auto) 0.5, Eos # (Auto) 0.1, Baso # (Auto) 0.0, Sodium 142, Potassium 3.7, Chloride 110 H, Carbon Dioxide 29, Anion Gap 6.7, BUN 22 H, Creatinine 1.10, Estimated Creat Clear 67, Estimated GFR 69, Est GFR ( Amer) 83, Glucose 81, Calcium 8.7, Total Bilirubin 0.7, AST 27 D, ALT 17, Alkaline Phosphatase 100, Total Protein 6.2 L, Albumin 3.6, Globulin 2.6, Albumin/Globulin Ratio 1.4, Triglycerides 94, Cholesterol 114 L, LDL Cholesterol Direct 66.26 L, VLDL Cholesterol 19, HDL Cholesterol 26 L, Cholesterol/HDL Ratio 4.4 H I & O for Labs for Last 24 Hours: Intake & Output 09/03/23 09/04/23 09/05/23 09/06/23 11:59 11:59 11:59 11:59 Intake Total 688 / 688 2217 / 2217 Output Total 751 / 751 1730 / 1730 Balance -63 / -63 487 / 487 Weight 138 lb 1 oz 141 lb 2 oz Head: Present normocephalic Neck: Present normal inspection Respiratory: Present decreased breath sounds and CTA bilaterally Cardiac: Present Reg Rate and Rhythm GI: Present soft and normal bowel sounds; Absent distention, tenderness, guarding or rebound Rectal (male): Present deferred (male): Present normal inspection, normal testicular lie, circumcised and other (No hernias); Absent scrotal swelling Extremities: Present normal inspection Skin: Present intact Neuro: Present alert, awake and oriented x 3 Assessment and Plan *Assessment and plan (1) Partial obstruction of small intestine: Status: Acute Category: Medical Code(s): K56.600 - Partial intestinal obstruction, unspecified as to cause (2) Constipation: Status: Acute Category: Medical Code(s): K59.00 - Constipation, unspecified (3) Tobacco dependence syndrome: Status: Acute Category: Medical Code(s): F17.200 - Nicotine dependence, unspecified, uncomplicated (4) Hx of rcydf-bjfhk-egixenh bypass: Status: Chronic Category: Surgical Code(s): Z95.828 - Presence of other vascular implants and grafts (5) PAD (peripheral artery disease): Status: Chronic Category: Medical Code(s): I73.9 - Peripheral vascular disease, unspecified Plan If he could have a bowel movement likely he could be discharged. Defer to Dr. Regan.
[2023-09-06 15:53] VITALS: BP 121/77; PULSE 59; RESP 20; TEMP 36.6; O2SAT 95
[2023-09-06 20:00] VITALS: BP 112/71; PULSE 66; RESP 20; TEMP 36.7; O2SAT 96
[2023-09-07 04:00] VITALS: BP 111/63; PULSE 51; RESP 20; TEMP 36.6; O2SAT 97; BMI 20.9
--- NOTE | 2023-09-07 05:18 | PC.NURSE ---
hyperactive bowel sounds with no BM's. otherwise rested well t/o night
--- NOTE | 2023-09-07 06:50 | EXP.SURG.PN ---
Subjective Narrative: Doing well with no complaints. Tolerated nasogastric tube out yesterday. Passing some gas. No bowel movement. Taking some sips of clear liquids. Abdominal x-ray yesterday revealed no evidence of any bowel obstruction. Exam Data for Last 24 hours Vital signs and Labs for Last 24 Hours: Temp Pulse Resp BP Pulse Ox O2 Del Method 97.9 F 51 L 20 111/63 97 Room Air 09/07/23 04:00 09/07/23 04:00 09/07/23 04:00 09/07/23 04:00 09/07/23 04:00 09/07/23 06:03 Laboratory Results - last 24 hr 09/06/23 07:05: WBC 9.1, RBC 4.78, Hgb 16.0, Hct 47.6, MCV 99.7 H, MCH 33.5 H, MCHC 33.6, RDW 13.3, Plt Count 213, MPV 8.2, Neut % (Auto) 75.8, Lymph % (Auto) 17.7, [place] % (Auto) 5.5, Eos % (Auto) 0.7, Baso % (Auto) 0.3, Neut # (Auto) 6.9, Lymph # (Auto) 1.6, [place] # (Auto) 0.5, Eos # (Auto) 0.1, Baso # (Auto) 0.0, Sodium 142, Potassium 3.7, Chloride 110 H, Carbon Dioxide 29, Anion Gap 6.7, BUN 22 H, Creatinine 1.10, Estimated Creat Clear 67, Estimated GFR 69, Est GFR ( Amer) 83, Glucose 81, Calcium 8.7, Total Bilirubin 0.7, AST 27 D, ALT 17, Alkaline Phosphatase 100, Total Protein 6.2 L, Albumin 3.6, Globulin 2.6, Albumin/Globulin Ratio 1.4, Triglycerides 94, Cholesterol 114 L, LDL Cholesterol Direct 66.26 L, VLDL Cholesterol 19, HDL Cholesterol 26 L, Cholesterol/HDL Ratio 4.4 H I & O for Last 24 hours: Intake & Output 09/04/23 09/05/23 09/06/23 09/07/23 11:59 11:59 11:59 11:59 Intake Total 688 / 688 2217 / 2217 360 / 360 Output Total 751 / 751 1730 / 1730 500 / 500 Balance -63 / -63 487 / 487 -140 / -140 Weight 138 lb 1 oz 141 lb 2 oz 141 lb 1.992 oz *Routine Abdominal Exam Abdominal: Present soft; Absent tenderness Progress Note: A&P Assessment and plan (1) Partial obstruction of small intestine: Status: Acute Assessment and plan: Clinical and radiographic improvement of possible bowel obstruction. I will going give full liquids at this time. If tolerated possible discharge later (2) Constipation: Status: Acute (3) Tobacco dependence syndrome: Status: Acute (4) Hx of jwtgo-edqzj-vrhfvde bypass: Status: Chronic (5) PAD (peripheral artery disease): Status: Chronic
[2023-09-07 07:55] VITALS: BP 119/73; PULSE 69; RESP 18; TEMP 36.4; O2SAT 97
[2023-09-07 08:00] VITALS: RESP 16
[2023-09-07] MEDS: POLYETHYLENE GLYCOL 3350 17 GM PACKET PO (08:10)
--- NOTE | 2023-09-07 08:39 | EXP.ACUTE.PN ---
Subjective *Date: 09/07/23 *Time: 08:39 Interval history: Patient is ready to go home. He has ambulated to the bathroom several times without difficulty. His main complaint is his IV and would like to have it out. He has had clear liquids with pudding and tolerated well. Dr. Regan has been in and will advance diet. Bowels have not moved but he is passing flatus. He denies chest pain and shortness of breath. Medical Exam Vital signs and Labs for Last 24 Hours: Vital Signs Temp Pulse Resp BP Pulse Ox O2 Del Method 09/07/23 08:00 16 09/07/23 07:55 97.6 F 69 18 119/73 97 Room Air 09/07/23 06:03 Room Air 09/07/23 04:00 97.9 F 51 L 20 111/63 97 Room Air 09/07/23 05:00 Room Air 09/07/23 03:00 Room Air 09/07/23 01:00 Room Air 09/06/23 23:00 Room Air 09/06/23 20:00 98.1 F 66 20 112/71 96 Room Air 09/06/23 21:00 Room Air 09/06/23 20:00 Room Air 09/06/23 18:12 Room Air 09/06/23 17:00 Room Air 09/06/23 15:00 Room Air 09/06/23 15:53 98 F 59 L 20 121/77 95 Room Air 09/06/23 13:00 Room Air 09/06/23 11:00 Room Air 09/06/23 08:50 Room Air Intake and Output 09/06/23 09/07/23 09/07/23 19:59 03:59 11:59 Intake Total 0 / 0 360 / 360 250 / 610 Output Total 200 / 200 300 / 500 Balance -200 / -200 60 / -140 250 / 110 Intake: Intake, Oral Amount 0 / 0 360 / 360 250 / 610 Output: Output, Urine Amount 200 / 200 300 / 500 Other: Number of Unmeasured Voids 0 0 Number of Bowel Movements 0 Weight 141 lb 1.992 oz Patient Weight 09/07/23 11:59 Weight 141 lb 1.992 oz I & O for Labs for Last 24 Hours: Intake & Output 02/23/24 02/24/24 02/25/24 02/26/24 11:59 11:59 11:59 11:59 Intake Total 688 / 688 2217 / 2217 610 / 610 Output Total 751 / 751 1730 / 1730 500 / 500 Balance -63 / -63 487 / 487 110 / 110 Weight 138 lb 1 oz 141 lb 2 oz 141 lb 1.992 oz Constitutional: Present no acute distress Comment:: Sitting up in the bed and appears most comfortable. He denies abdominal pain. Respiratory: Present CTA bilaterally (Anteriorly and posteriorly) Cardiac: Present Reg Rate and Rhythm GI: Present soft and normal bowel sounds; Absent distention, guarding or rebound Extremities: Present normal inspection and full ROM; Absent tenderness, edema or calf tenderness Neuro: Present alert and oriented x 3 Assessment and Plan *Assessment and plan (1) Partial obstruction of small intestine: Status: Acute Category: Medical Code(s): K56.600 - Partial intestinal obstruction, unspecified as to cause (2) Constipation: Status: Acute Category: Medical Code(s): K59.00 - Constipation, unspecified (3) Tobacco dependence syndrome: Status: Acute Category: Medical Code(s): F17.200 - Nicotine dependence, unspecified, uncomplicated (4) Hx of pmsoa-tjraz-jsqamwe bypass: Status: Chronic Category: Surgical Code(s): Z95.828 - Presence of other vascular implants and grafts (5) PAD (peripheral artery disease): Status: Chronic Category: Medical Code(s): I73.9 - Peripheral vascular disease, unspecified Plan Diet was advanced per Dr. Regan to full liquids. Probably home today.
[2023-09-07] MEDS: BISACODYL 10MG SUPP 10 MG RC (09:36)
--- NOTE | 2023-09-08 14:09 | CARE MANAGER ---
Spoke with patient related to hospital discharge. He states he is doing well. He was unsure whether or not to take his Metamucil. Spoke with pharmacy and suggested we hold it until follow up appointment with PCP. He is taking his Miralax and is aware of follow up appointment. Denies any other questions or concerns.
--- NOTE | 2023-09-12 21:21 | EXP.DC.SUM ---
General Admission date:: 09/05/23 Discharge date: 09/07/23 HPI HPI HPI: Patient is a 58-year-old with a 2ppd history of tobacco dependence, chronic arterial occlusive disease prior history of aorta iliac femoral bypass in 2016. He is on Xarelto. He presented to the emergency department last evening of 09/04/2023 with abdominal and back pain described as cramping with some vomiting and chills. His symptoms stated yesterday morning. He has had similar episodes in the past for which he did not seek medical attention and they resolved without intervention. His last bowel movement was on 09/03/2023. Evaluation in the emergency department included CTA of the abdomen and pelvis which revealed findings most likely represent partial small bowel obstruction. Given the decrease small bowel wall enhancement of the obstructed segment, mesenteric ischemia is a differential possibility. Mesenteric arteries are patent. Patient did undergo colonoscopy with Dr. Lee 16 months ago which was completely normal. In the ER patient did have a nasogastric tube placed with improvement in symptoms. He does feel somewhat better this morning, he states. The patient has been seen in consultation by Dr. Regan this morning. See his evaluation. Hospital Course Hospital Course Hospital Course: The patient was admitted and an NG tube was placed. The patient was seen in consultation by Dr. Regan. He was passing some gas. His acute abdominal series showed small and large bowel gas consistent with an ileus. He had a repeat x-ray which showed a significant amount of large bowel stool with a small to moderate amount of gas. Dr. Regan did not feel this was consistent with a small bowel obstruction. The patient was given a Dulcolax suppository and the NG tube was removed. He did well without the NG tube and was able to pass some gas and take some sips of clear liquids. He was advanced to full liquids. He tolerated his diet and was able to ambulate around the room. He was anxious to go home and was stable for discharge. Exam Data for Last 24 hours Vital signs and Labs for Last 24 Hours: Temp Pulse Resp BP Pulse Ox O2 Del Method 97.6 F 69 16 119/73 97 Room Air 09/07/23 07:55 09/07/23 07:55 09/07/23 08:00 09/07/23 07:55 09/07/23 07:55 09/07/23 09:00 Narrative: Constitutional Constitutional: no acute distress *Routine HEENT Exam Head: Present normocephalic Eye: Present PERRL ENT: Present mucous membranes moist *Routine Neck Exam Neck: Present full ROM; Absent carotid bruit Routine Chest/Breast/Axilla Exam Chest wall: Absent tenderness *Routine Respiratory Exam Respiratory: Present decreased breath sounds; Absent respiratory distress, rhonchi, stridor or wheezes *Routine Cardiovascular Exam Cardiovascular: Present RRR *Routine Abdominal Exam Abdominal: Present soft and surgical scars; Absent tenderness, distended or guarding *Routine Rectal Exam Rectal:: deferred *Routine Genitalia Exam Genitalia:: deferred *Routine Extremities Exam Extremities: Absent cyanosis, clubbing or edema Routine Back/Spine/Pelvis Exam Back/Spine: Absent CVA tenderness *Routine Skin Exam Skin: Present intact; Absent scars (tattoos of left forearm) *Routine Neurological Exam Neurological: Present alert, oriented X3 and normal speech; Absent sensory deficit, motor deficit or altered mental status Routine Psychiatric Exam Psychiatric: Present normal affect, normal thought process and cooperative DS: Diagnosis Discharge Diagnosis (1) Partial obstruction of small intestine: Status: Acute Code(s): K56.600 - Partial intestinal obstruction, unspecified as to cause (2) Constipation: Status: Acute Code(s): K59.00 - Constipation, unspecified (3) Tobacco dependence syndrome: Status: Acute Code(s): F17.200 - Nicotine dependence, unspecified, uncomplicated (4) Hx of xvwnu-ijgtm-frqqaxf bypass: Status: Chronic Code(s): Z95.828 - Presence of other vascular implants and grafts (5) PAD (peripheral artery disease): Status: Chronic Code(s): I73.9 - Peripheral vascular disease, unspecified Meds Home Medications and Allergies Home Medications Medication Instructions Recorded Confirmed Type lisinopril 10 mg tablet 10 mg PO DAILY High Blood Pressure 01/11/21 09/05/23 History aspirin 81 mg tablet,delayed 81 mg PO DAILY Heart Health 04/21/22 09/05/23 History release atorvastatin 40 mg tablet 40 mg PO DAILY Cholesterol 04/21/22 09/05/23 History rivaroxaban 2.5 mg tablet (Xarelto) 2.5 mg PO BIDWMEAL Blood 09/05/23 09/05/23 History Thinner/Coronary Artery Disease polyethylene glycol 3350 17 gram 17 g PO DAILY #30 ea 09/07/23 Rx oral powder packet (Miralax) New Prescriptions to Start Prescriptions: polyethylene glycol 3350 [Miralax] Alexandro Madrid Allergies Allergy/AdvReac Type Severity Reaction Status Date / Time silver AdvReac Mild Blister Verified 04/21/22 14:35 [From Tegaderm AG Mesh] Discharge Plan Disposition Patient Disposition: Home, Self-Care Condition: Serious Discharge Order Discharge Orders: Discharge Order (Routine); Ordered 09/07/23 Ordered By: Alexandro Madrid Follow up Plan Follow up with: Earl Regan MD [Staff Physician] - Enter time for follow up (call if you need an apt) Karel Pappas MD [Staff Physician] - 09/18/23 10:45 am (with Dr. Dimas) Prescriptions/Medication Reconciliation: New polyethylene glycol 3350 [Miralax] 17 gram Powder In Packet 17 g PO DAILY Qty: 30 5RF Continued lisinopril 10 mg tablet 10 mg PO DAILY Xarelto 2.5 mg tablet 2.5 mg PO BIDWMEAL atorvastatin 40 mg tablet 40 mg PO DAILY aspirin 81 mg tablet,delayed release (DR/EC) 81 mg PO DAILY Problem Reconciliation Problems Reviewed?: Yes Patient Discharge Instructions ACTIVITY: Continue current activity Patient Instructions: DI for Small Bowel Obstruction, DI for Constipation Providers Primary Care Provider: Alexandro Madrid Admit Provider: Alexandro Madrid Attending Provider: Alexandro Madrid
== END 2023-09-07 11:02 | disposition home or self-care (01) | DRG 390 ==
LOC: ER 20:50 → 2ND 09-05 00:07
PROVIDERS: Admitting Provider Family Medicine; Emergency Provider Emergency Medicine; PCP Family Medicine; Visit Provider Family Medicine
DX: K56.600 Partial intestinal obstruction, unspecified as to cause (principal); E78.00 Pure hypercholesterolemia, unspecified; I73.9 Peripheral vascular disease, unspecified; F17.210 Nicotine dependence, cigarettes, uncomplicated; K59.00 Constipation, unspecified
CPT/HCPCS: 36415; 71275; 74018; 74021; 74174; 80053; 80061; 81001; 82607; 83605; 84443; 85007; 85025; 85610; 85730; 99285; J2405; Q9967

== ENCOUNTER 2024-12-31 09:16 | Outpatient (CLI) | payer OTHER, SELFPAY ==
--- NOTE | 2024-12-31 | CT_ITS ---
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 There is no evidence of mediastinal or hilar mass or adenopathy. No axillary mass or adenopathy is identified. On the lung window images, no pulmonary mass or suspicious nodule is identified. IMPRESSION: Lung RADS category 1 . Recommend 12 month followup low-dose CT for further evaluation. Reviewed, Interpreted and Dictated by Alexandro Mancini MD Transcribed by Regla Machado Authenticated and [facility]
== END 2024-12-31 23:59 | disposition home or self-care (01) ==
LOC: RAD 09:17
PROVIDERS: PCP Family Medicine; Visit Provider Family Medicine
DX: Z12.2 Encounter for screening for malignant neoplasm of respiratory organs (principal); F17.210 Nicotine dependence, cigarettes, uncomplicated
CPT/HCPCS: 71271